=== PATIENT | female | born 1930 | race Caucasian/White ===

== ENCOUNTER → 2017-02-20 | Outpatient (CLI) | payer MEDICARE ==
[~2017-02-20] MED LIST: AVAPRO PO; AVAPRO150 MG PO; COVERA HS PO; DAYPRO600 M1 PO; FERRO-TIME325 MG PO; FOLIC ACID PO; HYDROCODON-ACE1 EAC7 PO; METHOTREXATE2.5 MG PO; OXAPROZIN600 MG PO; PLAQUENIL200 MG PO; PRILOSEC PO; VERAPAMIL HCL240 MG PO; ZOFRAN PO; [UNRECOGNIZED DRUG - OTHER]
[2017-02-20 16:29] LABS: BASOPHIL# 0.1 X10e3 (0-0.3); BASOPHIL% 0.9 % (0-2.5); EOSINOPHIL# 0.2 X10e3 (0-0.7); EOSINOPHIL% 3.6 % (0.0-7.0); HEMATOCRIT 41.6 % (35.0-45.0); HEMOGLOBIN 13.6 gm/dL (12.0-16.0); LYMPHOCYTE# 1.6 X10e3 (1.0-3.5); LYMPHOCYTE% 26.5 % (17.0-45.0); MEAN CELL VOLUME 91.7 FL (83-96); MEAN CORPUSCULAR HEMOGLOBIN 29.9 PG (28-34); MEAN CORPUSCULAR HGB CONC 32.6 g/dL (30-36); MEAN PLATELET VOLUME 9.3 FL (6.5-11.5); MONOCYTE# 0.6 X10e3 (0-1.0); MONOCYTE% 9.6 % (3.0-12.0); NEUTROPHIL# 3.6 X10e3 (1.5-7.1); NEUTROPHIL% 59.4 % (40-75); PLATELET COUNT 170 X10e3 (140-420); RED BLOOD COUNT 4.54 X10e (3.90-5.30); RED CELL DISTRIBUTION WIDTH 13.4 % (11.0-15.5); WHITE BLOOD COUNT 6.1 X10e3 (4.0-10.5)
[2017-02-20 16:39] LABS: DIFF IND NO
[2017-02-20 16:51] LABS: ALBUMIN SERUM 3.8 g/dL (3.5-5.0); BILIRUBIN,TOTAL 0.3 mg/dL (0.2-2.0); CALCIUM SERUM 8.9 mg/dL (8.4-10.2); GLOM FILT RATE Estimated 50.6 mL/min (>60); POTASSIUM 3.7 mmol/L (3.5-5.1); PROTEIN TOTAL SERUM 7.1 g/dL (6.0-8.3)
== END | disposition home or self-care (01) ==
LOC: SLAB 15:55
PROVIDERS: Internal Medicine
DX: M06.9 Rheumatoid arthritis, unspecified (principal); M15.9 Polyosteoarthritis, unspecified
CPT/HCPCS: 36415; 80053; 85025